=== PATIENT | female | born 1945 | race African-American/Black ===

== ENCOUNTER 2019-04-10 11:44 | Observation (INO) | payer BC, MEDICARE ==
[~2019-04-10] VITALS: Ht 170.2 cm; Wt 86.2 kg
--- OUTSIDE RECORDS SUMMARY | 2019-04-10 11:49 | XMS REPORT ---
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 Allergies, Adverse Reactions, Alerts Allergy Name Allergy Type Status Severity Reaction(s) Onset Date Inactive Date Treating Clinician Comments No Known Allergies DA Active U 2019-02-13 00:00:00 No Known Allergies DA Active U 2015-11-18 00:00:00 Medications This patient has no known medications. Results Test Description Test Time Test Comments Text Results Atomic Results Result Comments [facility] 2019-02-23 16:22:00 RUN DATE: 02/23/19 [place] - Lab PAGE 1 RUN TIME: 1622 Specimen Inquiry RUN USER: INTERFACE PATIENT: DIANA PETER LOC: DEMETRIUS U #: [id number] AGE/SX: 73/F ROOM: RE02/19/19REG DR: Alex Cook MD : 44 BED: DIS: STATUS: [facility] TLOC: SPEC #: [id number] RECD: 02/19/19 STATUS: POOL [facility] #: [id number] LAURY: 02/19/19- SUBM DR: Alex Cook MD ENTERED: 02/19/19 SP TYPE: STOMACH OTHR DR: ORDERED: GROSS MARKERS: INTRADEPARTMENTAL CONSULT PROCEDURES: GROSS (02/23/19-103) TISSUES: 1. ANTRAL BIOPSY - H-PYLORI 2. BODY BIOPSY OF STOMACH - BX 3. SIGMOID - BX 4. RECTUM, NOS - BX CLINICAL HISTORY COLLECTION DATE: 02/19/19 BLOATING COMMENT The inflammation in the third specimen is quite prominant with plasma cells extending into the muscularis mucosa. Only a few glands are present in the mucosa limiting the evaluation for glandular changes. The differential includes infectious etiologies and inflammatory bowel d isease. Clinical correlation is recommended. Intradepartmental consultation: RRB. FINAL DIAGNOSIS Antrum, biopsy: REACTIVE GASTROPATHY WITH PATCHY MILD CHRONIC INFLAMMATION NO INTESTINAL METAPLASIA SEEN NEGATIVE FOR HELICOBACTER PYLORI BY GIEMSA STAIN NEGATIVE FOR MALIGNANCY Body of stomach, biopsy: GASTRIC MUCOSA, NO PATHOLOGIC ALTERATION Sigmoid colon, biopsy: PROMINANT ACUTE AND CHRONIC INFLAMMATION WITH NUMEROUS PLASMA CELLS NEGATIVE FOR MALIGNANCY (SEE COMMENT) Rectum, biopsy: CONTINUED ON NEXT PAGE RUN DATE: 02/23/19 [facility] PAGE 2 RUN TIME: 1622 Specimen Inquiry RUN USER: INTERFACE SPEC #: [id number] PATIENT: DIANA PETERN #[id number] (Continued) FINAL DIAGNOSIS (Continued) COLONIC MUCOSA, NO PATHOLOGIC ALTERATION DMW/alexis D [id number], [id number] MACROSCOPIC The first specimen is received in formalin, labeled with the patient's name, identified as "antrum", and consists of two eisenberg biopsy fragments measuring 0.6 and 0.4 cm in length. The second specimen is received in formalin, labeled with the patient's name, identified as "body biopsy", and consists of two eisenberg biopsy fragments measuring 0.3 cm each. The third specimen is received in formalin, labeled with the patient's name, identified as "sigmoid colon biopsy", and consists of a eisenberg biopsy fragment measuring 0.3 cm. The fourth specimen is received in formalin, labeled with the patient's name, identified as "rectum colon", and consists of a eisenberg biopsy fragment measuring 0.3 cm. GROSS PERFORMED AT [facility] [address] [place] [address] (p)[phone] MICROSCOPIC All of the stains, including any controls performed, stain appropriately. MICROSCOPIC PERFORMED AT [facility] [address] [facility], [place] [address] [phone])[phone] PERFORMING SITE Diagnosis performed at: [facility] [address] [place] [address] CONTINUED ON NEXT PAGE RUN DATE: 02/23/19 [place] - Lab PAGE 3 RUN TIME: 1622 Specimen Inquiry RUN USER: INTERFACE SPEC #: [id number] PATIENT: DIANA PETER NEFTALY #[id number] (Continued) PERFORMING SITE (Continued) [phone] Signed SIGNATURE ON FILE Bonita Munoz MD 02/23/19 1622 END OF REPORT GLUBED 2019-02-19 07:36:00 GLUBED (test code=GLUBED) 195 mg/dL 74-106 Performed by certified alemite operator at [facility] PROTHROMBIN [id number] 07:29:00* Test Item Value Reference Range Comments PROTHROMBIN TIME PATIENT (test code=PTP) 11.5 seconds 9.0-14.0 INTERNATIONAL NORMAL RATIO (test code=INR) 1.0 0.8-1.2 The therapeutic range for oral anticoagulant therapy formost indications is an international normalized ratio (INR)of between 2.0 and 3.0. The recommended therapeutic INRrange for various clinical situations is listed below: Clinical Situation INR range Pulmonary e mbolism treatment (2.0-3.0)Venous thrombosis treatmentVenous thrombosis prophylaxis (high risk surgery)Prevention of systemic embolism from: Acute myocardial infarction Valvular heart disease Atrial fibrillation Mechanical prosthetic heart valves (2.5-3.5) IS PATIENT ON ANTICOAGULANTS? YLIST ANTICOAGULANTS XARELTOCOMMENTS TO PHLEBO TOMIST: IN DSUTHROMBOPLASTIN TIME [id number] 07:29:00* Test Item Value Reference Range Comments THROMBOPLASTIN TIME PARTIAL (test code=PTT) 34.5 seconds 25.0-36.5 IS PATIENT ON ANTICOAGULANTS? YLIST ANTICOAGULANTS XARELTOCOMMENTS TO PHLEBO TOMIST: IN DSUBASIC METABOLIC [id number] 07:27:00* Test Item Value Reference Range Comments SODIUM (test code=NA) 143 mmol/L 136-145 POTASSIUM (test code=K) 3.1 mmol/L 3.5-5.1 CHLORIDE (test code=CL) 105.0 mmol/L 98-107 CARBON DIOXIDE (test code=CO2) 26.0 mmol/L 21-32 ANION GAP (test code=GAP) 15.1 10-20 GLUCOSE (test code=GLU) 187 mg/dL 74-106 BLOOD UREA NITROGEN (test code=BUN) 18 mg/dL 7-18 GLOMERULAR FILTRATION RATE (test code=GFR) 30 mL/min >=60 Estimated GFR by using Modified MDRD formula.Chronic kidney disease is defined as either kidney damageor GFR <60 mL/min/1.73 m2 for >3 months. CREATININE (test code=CREAT) 2.00 mg/dL 0.55-1.02 Note change in reference range due to change in reagent. BUN/CREATININE RATIO (test code=BUN/CREA) 9.0 10-20 CALCIUM (test code=CA) 9.9 mg/dL 8.5-10.1 BASIC METABOLIC [id number] 07:24:00* Test Item Value Reference Range Comments SODIUM (test code=NA) 143 mmol/L 136-145 POTASSIUM (test code=K) 3.1 mmol/L 3.5-5.1 CHLORIDE (test code=CL) 105.0 mmol/L 98-107 CARBON DIOXIDE (test code=CO2) mmol/L 21-32 ANION GAP (test code=GAP) 10-20 GLUCOSE (test code=GLU) mg/dL 74-106 BLOOD UREA NITROGEN (test code=BUN) mg/dL 7-18 GLOMERULAR FILTRATION RATE (test code=GFR) mL/min >=60 CREATININE (test code=CREAT) mg/dL 0.55-1.02 BUN/CREATININE RATIO (test code=BUN/CREA) 10-20 CALCIUM (test code=CA) mg/dL 8.5-10.1 CBC W/AUTO [id number] 07:14:00* Test Item Value Reference Range Comments WHITE BLOOD CELL (test code=WBC) 7.3 K/mm3 4.5-12.5 RED BLOOD CELL (test code=RBC) 5.43 mill/mm3 3.7-5.2 HEMOGLOBIN (test code=HGB) 14.2 gram/dL 11.5-15.5 HEMATOCRIT (test code=HCT) 43.9 % 36.0-46.0 MEAN CELL VOLUME (test code=MCV) 80.8 fL 80-98 MEAN CELL HGB (test code=MCH) 26.2 picogram 27.0-33.0 MEAN CELL HGB CONCETRATION (test code=MCHC) 32.3 gram/dL 33.0-36.0 RED CELL DISTRIBUTION WIDTH (test code=RDW) 15.7 % 11.6-16.2 RED CELL DISTRIBUTION WIDTH SD (test code=RDW-SD) 45.2 fL 37.0-51.0 PLATELET COUNT (test code=PLT) 201 K/mm3 150-450 MEAN PLATELET VOLUME (test code=MPV) 11.3 fL 6.7-11.0 NEUTROPHIL % (test code=NT%) 54.6 % 39.0-69.0 IMMATURE GRANULOCYTE % (test code=IG%) 0.3 % 0.0-5.0 LYMPHOCYTE % (test code=LY%) 34.7 % 25.0-55.0 MONOCYTE % (test code=MO%) 8.6 % 0.0-10.0 EOSINOPHIL % (test code=EO%) 1.5 % 0.0-5.0 BASOPHIL % (test code=BA%) 0.3 % 0.0-1.0 NUCLEATED RBC % (test code=NRBC%) 0.0 % 0-0 NEUTROPHIL # (test code=NT#) 4.00 K/mm3 1.8-7.7 IMMATURE GRANULOCYTE # (test code=IG#) 0.02 x10 3/uL 0-0.03 LYMPHOCYTE # (test code=LY#) 2.54 K/mm3 1.0-5.0 MONOCYTE # (test code=MO#) 0.63 K/mm3 0-0.8 EOSINOPHIL # (test code=EO#) 0.11 K/mm3 0.0-0.5 BASOPHIL # (test code=BA#) 0.02 K/mm3 0.0-0.2 NUCLEATED RBC # (test code=NRBC#) 0.00 K/mm3 0.0-0.1 MANUAL DIFF REQUIRED (test code=MDIFF) NO CBC W/AUTO [id number] 07:12:00* Test Item Value Reference Range Comments WHITE BLOOD CELL (test code=WBC) K/mm3 4.5-12.5 RED BLOOD CELL (test code=RBC) mill/mm3 3.7-5.2 HEMOGLOBIN (test code=HGB) 14.2 gram/dL 11.5-15.5 HEMATOCRIT (test code=HCT) 43.9 % 36.0-46.0 MEAN CELL VOLUME (test code=MCV) fL 80-98 MEAN CELL HGB (test code=MCH) picogram 27.0-33.0 MEAN CELL HGB CONCETRATION (test code=MCHC) gram/dL 33.0-36.0 RED CELL DISTRIBUTION WIDTH (test code=RDW) % 11.6-16.2 RED CELL DISTRIBUTION WIDTH SD (test code=RDW-SD) fL 37.0-51.0 PLATELET COUNT (test code=PLT) K/mm3 150-450 MEAN PLATELET VOLUME (test code=MPV) fL 6.7-11.0 NEUTROPHIL % (test code=NT%) % 39.0-69.0 IMMATURE GRANULOCYTE % (test code=IG%) % 0.0-5.0 LYMPHOCYTE % (test code=LY%) % 25.0-55.0 MONOCYTE % (test code=MO%) % 0.0-10.0 EOSINOPHIL % (test code=EO%) % 0.0-5.0 BASOPHIL % (test code=BA%) % 0.0-1.0 NEUTROPHIL # (test code=NT#) K/mm3 1.8-7.7 LYMPHOCYTE # (test code=LY#) K/mm3 1.0-5.0 MONOCYTE # (test code=MO#) K/mm3 0-0.8 EOSINOPHIL # (test code=EO#) K/mm3 0.0-0.5 BASOPHIL # (test code=BA#) K/mm3 0.0-0.2 PROTHROMBIN [id number] 13:17:00* Test Item Value Reference Range Comments PROTHROMBIN TIME PATIENT (test code=PTP) 15.5 seconds 9.0-14.0 INTERNATIONAL NORMAL RATIO (test code=INR) 1.3 0.8-1.2 The therapeutic range for oral anticoagulant therapy formost indications is an international normalized ratio (INR)of between 2.0 and 3.0. The recommended therapeutic INRrange for various clinical situations is listed below: Clinical Situation INR range Pulmonary e mbolism treatment (2.0-3.0)Venous thrombosis treatmentVenous thrombosis prophylaxis (high risk surgery)Prevention of systemic embolism from: Acute myocardial infarction Valvular heart disease Atrial fibrillation Mechanical prosthetic heart valves (2.5-3.5) IS PATIENT ON ANTICOAGULANTS? NBASIC METABOLIC [id number] 13:06:00* Test Item Value Reference Range Comments SODIUM (test code=NA) 151 mmol/L 136-145 POTASSIUM (test code=K) 3.7 mmol/L 3.5-5.1 CHLORIDE (test code=CL) 116.0 mmol/L 98-107 CARBON DIOXIDE (test code=CO2) 25.0 mmol/L 21-32 ANION GAP (test code=GAP) 13.7 10-20 GLUCOSE (test code=GLU) 196 mg/dL 74-106 BLOOD UREA NITROGEN (test code=BUN) 17 mg/dL 7-18 GLOMERULAR FILTRATION RATE (test code=GFR) 45 mL/min >=60 Estimated GFR by using Modified MDRD formula.Chronic kidney disease is defined as either kidney damageor GFR <60 mL/min/1.73 m2 for >3 months. CREATININE (test code=CREAT) 1.40 mg/dL 0.55-1.02 Note change in reference range due to change in reagent. BUN/CREATININE RATIO (test code=BUN/CREA) 12.1 10-20 CALCIUM (test code=CA) 9.1 mg/dL 8.5-10.1 HEPATIC FUNCTION [id number] 13:06:00* Test Item Value Reference Range Comments TOTAL PROTEIN (test code=PROT) 7.5 gram/dL 6.4-8.2 ALBUMIN (test code=ALB) 3.5 g/dL 3.4-5.0 GLOBULIN (test code=GLOB) 4.0 gram/dL 2.7-4.2 ALBUMIN/GLOBULIN RATIO (test code=A/G) 0.9 0.75-1.50 BILIRUBIN TOTAL (test code=BILT) 0.50 mg/dL 0.0-1.0 BILIRUBIN DIRECT (test code=BILD) 0.12 mg/dL 0.0-0.20 SGOT/AST (test code=AST) 10 IUnit/L 15-37 SGPT/ALT (test code=ALT) 19 IUnit/L 12-78 ALKALINE PHOSPHATASE TOTAL (test code=ALKP) 55 IUnit/L 45-117 Note change in reference range due to change in reagent. [id number] 13:06:00* Test Item Value Reference Range Comments LIPASE (test code=LIP) 38 U/L 73.0-393.0 CBC W/O [id number] 13:03:00* Test Item Value Reference Range Comments WHITE BLOOD CELL (test code=WBC) 6.6 K/mm3 4.5-12.5 RED BLOOD CELL (test code=RBC) 4.95 mill/mm3 3.7-5.2 HEMOGLOBIN (test code=HGB) 12.8 gram/dL 11.5-15.5 HEMATOCRIT (test code=HCT) 41.4 % 36.0-46.0 MEAN CELL VOLUME (test code=MCV) 83.6 fL 80-98 MEAN CELL HGB (test code=MCH) 25.9 picogram 27.0-33.0 MEAN CELL HGB CONCETRATION (test code=MCHC) 30.9 gram/dL 33.0-36.0 RED CELL DISTRIBUTION WIDTH (test code=RDW) 15.8 % 11.6-16.2 PLATELET COUNT (test code=PLT) 176 K/mm3 150-450 MEAN PLATELET VOLUME (test code=MPV) 11.8 fL 6.7-11.0 CBC W/O [id number] 13:00:00* Test Item Value Reference Range Comments WHITE BLOOD CELL (test code=WBC) K/mm3 4.5-12.5 RED BLOOD CELL (test code=RBC) mill/mm3 3.7-5.2 HEMOGLOBIN (test code=HGB) 12.8 gram/dL 11.5-15.5 HEMATOCRIT (test code=HCT) 41.4 % 36.0-46.0 MEAN CELL VOLUME (test code=MCV) fL 80-98 MEAN CELL HGB (test code=MCH) picogram 27.0-33.0 MEAN CELL HGB CONCETRATION (test code=MCHC) gram/dL 33.0-36.0 RED CELL DISTRIBUTION WIDTH (test code=RDW) % 11.6-16.2 PLATELET COUNT (test code=PLT) K/mm3 150-450 MEAN PLATELET VOLUME (test code=MPV) fL 6.7-11.0 GASTRIC,[id number] 12:46:00 RUN DATE: 10/17/17 [place] [facility] PAGE 1 RUN TIME: 1247 Specimen Inqui ry RUN USER: INTERFACE PATIENT: DIANA PETER NEFTALY ACCT #: [id number] LOC: DEMETRIUS U #: [id number] AGE/SX: 72/F ROOM: RE10/13/17REG DR: lAex Cook MD : 44 BED: DIS: STATUS: DEP SD TLOC: SPEC #: [id number] RECD: 10/14/17 STATUS: POOL TAPIA #: [id number] LAURY: 10/13/17- SUBM DR: Alex Cook MD ENTERED: 10/14/17 SP TYPE: GASTRIC BX TOBI DR: ORDERED: GROSS PROCEDURES: GROSS (10/17/17) TISSUES: 1. GASTRIC FUNDUS - POLYP 2. ANTRUM - BX 3. ASCENDING COLON - POLYP CLINICAL HISTORY COLLECTION DATE: 10/13/17 RECTAL BLEEDING, ABDOMINAL PAIN POST-OP DIAGNOSIS: SEVERE GASTRITIS, GASTRIC POLYPS, COLON POLYP FINAL DIAGNOSIS Gastric polyp, cold biopsy: FUNDIC GLAND POLYP CONTROLLED GIEMSA STAIN NEGATIVE FOR HELICOBACTER ORGANISMS NEGATIVE FOR MALIGNANCY Stomach, antrum, biopsy: FOCAL PATCHY CHRONIC GASTRITIS CONTROLLED GIEMSA STAIN NEGATIVE FOR HELICOBACTER OR GANISMS NEGATIVE FOR INTESTINAL METAPLASIA AND DYSPLASIA NEGATIVE FOR MALIGNANCY Ascending colon polyp, cold snare/biopsy: TUBULAR AD ENOMA X 2 NEGATIVE FOR MALIGNANCY KELL/sm [phone], [phone] MACROSCOPIC The first specimen is received in formalin, labeled with the patient's name, identified as "gastric polyp bx", and consists of eisenberg biop sy tissue measuring 0.35 cm, submitted as (1) for H E and Giemsa stains. The second specimen is received in formalin, labeled with the patient's name, CONTINUED ON NEXT PAGE RUN DATE: 10/17/17 [facility] PAGE 2 RUN TIME: 1247 Specimen Inquiry RUN USER: INTERFACE - SPEC #: [id number] PATIENT: DIANA PETER #[id number] (Continued) MACROSCOPIC (Continued ) identified as "antrum bx", and consists of eisenberg biopsy tissue measuring 0.7 cm in aggregate, submitted as (2) for H E and Giemsa stains. The third s pecimen is received in formalin, labeled with the patient's name, identified a s "ascending colon polyp", and consists of two eisenberg biopsy tissue measuring 0.1 5 and 0.3 cm each, submitted as (3). GROSS PERFORMED AT [facility] [address] [place] [id number] (P) MICROSCOPIC MICROSCOPIC PERFORMED AT [facility] All of the stains, including any controls performed, stain appropriately. [facility] [address] [place] [phone] (K) PERFORMING SITE Diagnosis performed at: [facility], [place] [address] [place] [address] Signed SIGNATURE ON FILE Aurora Alarcon 10/17/17 1246 END OF REPORT
[2019-04-10 12:57] LABS: CLARITY,URINE CLOUDY (CLEAR); COLOR,URINE ORANGE (YELLOW); LEUKOCYTE ESTERASE ,URINE SMALL (NEGATIVE); NITRITE,URINE NEGATIVE (NEGATIVE)
[2019-04-10 12:58] LABS: KETONES,URINE TRACE (NEGATIVE); PROTEIN,URINE DIPSTICK 1+ (NEGATIVE); URINE UROBILINOGEN 0.2 mg/dL (0.2 - 1)
[2019-04-10 12:59] LABS: BILIRUBIN,URINE NEGATIVE (NEGATIVE)
[2019-04-10 13:07] LABS: RBC,URINE 0-5 /HPF (0-5); WBC,URINE (MAN) 21-50 /HPF (0-5)
[2019-04-10 13:08] LABS: BACTERIA,URINE MODERATE /HPF; EPITHELIAL CELLS,URINE MANY /LPF
[2019-04-10 13:16] LABS: BASOPHILS % 0.3 % (0.0-1.0); EOSINOPHILS % 0.5 % (0.0-6.0); HEMATOCRIT 40.9 % (34.2-44.1); HEMOGLOBIN 12.9 g/dL (12.0-16.0); LYMPHOCYTES # (AUTO) 2.2 (1.0-3.2); LYMPHOCYTES % 29.3 % (18.0-39.1); MEAN CORPUSCULAR HEMOGLOBIN 26.2 pg (28-32); MEAN CORPUSCULAR HGB CONC 31.5 g/dL (31-35); MEAN CORPUSCULAR VOLUME 83.1 fL (81-99); MONOCYTES # (AUTO) 0.5 (0.2-0.8); MONOCYTES % 6.9 % (4.4-11.3); NEUTROPHILS # (AUTO) 4.6 (2.1-6.9); NEUTROPHILS % 62.7 % (38.7-80.0); PLATELET COUNT 173 x10e3/uL (140-360); RED BLOOD COUNT 4.92 x10e6/uL (3.6-5.1)
--- NOTE | 2019-04-10 13:38 | Diagnostic Imaging Report ---
TECHNIQUE: Frontal and lateral views of the chest. INDICATION: 73-year-old woman with weakness. COMPARISON: None. FINDINGS: LINES/TUBES: None. LUNGS: The lungs are well inflated. No consolidation or pulmonary edema. Linear atelectasis in the left midlung zone. PLEURA: No pleural effusion or pneumothorax. HEART AND MEDIASTINUM: The cardiomediastinal silhouette is within normal limits. Atherosclerotic calcifications in the thoracic aorta. SOFT TISSUES AND BONES: Degenerative changes of the thoracic spine. Soft tissues are unremarkable. IMPRESSION: No acute cardiopulmonary abnormalities. Signed by: Laure Dahl MD on 04/10/2019 1:35 PM
[2019-04-10 13:40] LABS: ALBUMIN 3.7 g/dL (3.5-5.0); ANION GAP 13.8 mmol/L (8-16); CREATININE, SERUM 1.71 mg/dL (0.57-1.11)
--- NOTE | 2019-04-10 14:05 | Diagnostic Imaging Report ---
Examination: CT head without contrast Clinical Indication: Weakness. Unsteady gait. Technique: Transaxial noncontrast images from the skull base through the vertex were obtained. Sagittal and coronal reformatted images were done. Dose modulation, iterative reconstruction, and/or weight based adjustment of the mA/kV was utilized to reduce the radiation dose to as low as reasonably achievable. Comparison: None. Findings: Scalp: No abnormalities. Bones: Intact. No fractures. No blastic or lytic lesions. Brain sulci: Moderate generalized volume loss for patient's age. Ventricles: No hydrocephalus. Extra-axial space: No abnormalities. Parenchyma: There are confluent and patchy areas of low-attenuation within subcortical and periventricular white matter, nonspecific, but could represent microvascular ischemic disease. No masses, hemorrhage, or acute or chronic cortical based vascular insults. Suprasellar region: No abnormalities. Craniocervical junction: The foramen magnum is patent. No Chiari one malformation. Incidental findings: Opacified left sphenoid sinus. Atherosclerotic calcification of the cavernous and supraclinoid internal carotid and V4 segments of the bilateral vertebral arteries. Impression: 1. No acute intracranial finding. 2. Moderate chronic microvascular ischemic change and generalized volume loss. Signed by: Dr. Berna Camarena M.D. on 04/10/2019 2:02 PM
[2019-04-10 14:11] LABS: POTASSIUM 2.8 mmol/L (3.5-5.1)
[2019-04-10 15:01] LABS: AMPHETAMINES SCREEN,URINE NEGATIVE (NEGATIVE); BENZODIAZEPINES SCREEN,URINE POSITIVE (NEGATIVE); PHENCYCLIDINE SCREEN,URINE NEGATIVE (NEGATIVE)
[2019-04-10] MEDS ORDERED: POTASSIUM CHLORIDE 20 MEQ TAB CR PO STA (15:06)
[2019-04-10] MEDS: SODIUM CHLORIDE 0.9% 1000ML 1,000 ML IV SCH ×2 (16:00→22:34)
[2019-04-10] MEDS: CEFTRIAXONE SOD 1 GM/NS 50 ML 50 ML IV SCH (16:00)
[2019-04-10 16:09] LABS: CREATINE KINASE MB 0.9 ng/mL (0-5.0)
--- NOTE | 2019-04-10 21:03 | NUR ---
report called from [employer] SUPERVISORJACKLYN Donahue, patient pending arrival to the floor, observation status, full code, bedrest with BRP's, pending to room 186
--- NOTE | 2019-04-10 21:32 | NUR ---
PATIENT ARRIVED TO THE FLOOR ASSISTED BY RN, AND FAMILY, AWAKE ALERT, ORIENTED x 4, ABLE TO MAKE NEEDS KNOWN, ABLE TO AMBULATE WITH HANDS-ON ASSISTANCE FEW FEET, BEDSIDE COMMODE FOR SAFETY, BED ALARM, ORIENTED TO STAFF AND ROOM
[2019-04-10 21:36] VITALS: BP 196/89
[2019-04-10 21:40] VITALS: BP 196/89
[2019-04-10 22:00] VITALS: BP 196/89
[2019-04-10] MEDS ORDERED: FUROSEMIDE40 MG PO (22:24)
[2019-04-10] MEDS ORDERED: NEXIUM40 MG PO (22:24)
[2019-04-10] MEDS ORDERED: CHLORDIAZEPOX-1 EACH PO (22:24)
[2019-04-10] MEDS ORDERED: VERAPAMIL SR240 MG PO (22:24)
[2019-04-10] MEDS ORDERED: LEVOCETIRIZINE D5 MG PO (22:24)
[2019-04-10] MEDS ORDERED: BENICAR20 MG PO (22:24)
[2019-04-10] MEDS ORDERED: XARELTO20 MG PO (22:24)
[2019-04-10] MEDS ORDERED: SUCRALFATE1 GM PO (22:24)
[2019-04-10] MEDS ORDERED: DICYCLOMINE HCL10 MG PO (22:24)
[2019-04-10] MEDS ORDERED: MONTELUKAST SOD10 MG PO (22:24)
[2019-04-10] MEDS ORDERED: SIMVASTATIN PO (22:24)
[2019-04-10] MEDS ORDERED: KLOR-CON 1010 MEQ PO (22:24)
[2019-04-10] MEDS ORDERED: MESALAMINE1.2 GM (22:24)
[2019-04-10] MEDS ORDERED: GLIPIZIDE5 MG PO (22:24)
[2019-04-10] MEDS ORDERED: CARVEDILOL12.5 MG PO (22:24)
[2019-04-10] MEDS ORDERED: BROMPHENIR-PSE118 ML PO (22:24)
[2019-04-11] VITALS (8 sets, daily range): BP systolic 163–179; BP diastolic 87–102
[2019-04-11] MEDS: CEFTRIAXONE SOD 1 GM/NS 50 ML 50 ML IV SCH ×2 (03:27→16:54)
[2019-04-11 05:35] LABS: BASOPHILS % 0.4 % (0.0-1.0); EOSINOPHILS # (AUTO) 0.1 (0.0-0.4); EOSINOPHILS % 1.4 % (0.0-6.0); HEMATOCRIT 35.8 % (34.2-44.1); LYMPHOCYTES # (AUTO) 2.5 (1.0-3.2); LYMPHOCYTES % 44.5 % (18.0-39.1); MEAN CORPUSCULAR HEMOGLOBIN 26.1 pg (28-32); MEAN CORPUSCULAR HGB CONC 30.7 g/dL (31-35); MONOCYTES # (AUTO) 0.4 (0.2-0.8); MONOCYTES % 7.6 % (4.4-11.3); NEUTROPHILS # (AUTO) 2.6 (2.1-6.9); NEUTROPHILS % 45.9 % (38.7-80.0); PLATELET COUNT 149 x10e3/uL (140-360); RED BLOOD COUNT 4.21 x10e6/uL (3.6-5.1); RED CELL DISTRIBUTION WIDTH 14.1 % (11.7-14.4)
[2019-04-11 06:02] LABS: ALBUMIN 3.1 g/dL (3.5-5.0); ANION GAP 9.8 mmol/L (8-16); CALCIUM 8.8 mg/dL (8.4-10.2); CREATININE, SERUM 1.22 mg/dL (0.57-1.11); MAGNESIUM 1.9 MG/DL (1.3-2.1)
[2019-04-11 06:07] LABS: POTASSIUM 2.8 mmol/L (3.5-5.1)
--- NOTE | 2019-04-11 06:32 | NUR ---
LAB REPORTED CRITICAL LAB K+2.8, NO CHANGE IN POTASSIUM LEVEL FROM INITIAL, MD Reina VYAS PAGED, PENDING CALL BACK FOR ORDERS
--- NOTE | 2019-04-11 06:55 | NUR ---
SBAR REPORT GIVEN TO JACKLYN BONE MADE AWARE OF CRITICAL K+ LEVEL AND PENDING CALL BACK FROM MD VYAS, WILL FU FOR ORDERS
[2019-04-11] MEDS ORDERED: DEXTROSE 50% SYRINGE 50 ML IV PRN ×2 (08:00→10:00)
[2019-04-11] MEDS: SODIUM CHLORIDE 0.9% 1000ML 1,000 ML IV SCH ×2 (08:10→16:55)
[2019-04-11] MEDS ORDERED: POTASSIUM CHLORIDE 10MEQ EA PO ONE ×2 (08:15→11:15)
[2019-04-11] MEDS ORDERED: POTASSIUM CHLORIDE 20MEQ/100ML 100 ML IV ONE (10:45)
[2019-04-11] MEDS ORDERED: INSULIN REGULAR, HUMAN 100 UNIT/1 ML 3ML VIAL SQ SCH ×2 (11:30)
[2019-04-11] MEDS: INSULIN REGULAR, HUMAN 100 UNIT/1 ML 3ML VIAL SQ SCH ×3 (12:46→22:17)
--- NOTE | 2019-04-11 15:09 | NUR ---
Nutrition Screen Note RD Recommendation for Physician: - Continue current diet - BG and insulin management per MD Plan of Care: RD following, monitoring for tolerance and adequacy Nutrition reason for involvement: Nutrition Risk Trigger- MST2 Primary Diagnose(s): UTI, renal insufficiency, weakness, hypokalemia PMH: no H&P available in chart or [employer] Ht: 67 in Wt: 182.03 lb BMI: 28.5 kg/m2 IBW: [address] Assessment: (04/11) 73 YOF admitted for UTI, renal insufficiency, weakness, and hypokalemia. Pt seen today for MST screen. Pt sleeping at time of visit, unable to wake and no family present to provide hx. Pt appears well nourished. Per flow sheet per eating 75-100% of meals. No GI distress reported by RN. Skin intact. Chart reviewed. Labs and meds reviewed. Will continue to monitor. Current Diet: 1800 ADA Malnutrition Evaluation (04/11/19) The patient does not meet criteria for a specified degree of malnutrition at this time. Will re-evaluate at follow-up as appropriate. Unable to assess. Diet Education Needs Assessment: Diet education indicated, pt not appropriate at this time- sleeping, unable to wake. Diet tolerance: tolerating po Nutrition Care Level: low Signed: Kim King RD, LD, [facility]
--- NOTE | 2019-04-11 17:56 | NUR ---
new iv started in right forearm in one try due to positional occlusions. patient tolerated well.
--- NOTE | 2019-04-11 23:42 | NUR ---
EQUITIES ANALYST REPORT PATIENT ROUTINE VITALS, SBP NOTED >210, MD Reina VYAS PAGED FOR ORDERS IMMEDIATELY, BLOOD PRESSURE, AWAITING CALL BACK
[2019-04-12] VITALS (11 sets, daily range): BP systolic 138–235; BP diastolic 72–115
[2019-04-12] MEDS ORDERED: HYDRALAZINE HCL 20 MG/ML VIAL IV STA (00:15)
--- NOTE | 2019-04-12 00:15 | NUR ---
MD VYAS RETURN PAGE x 3, ORDERED TO GIVE HYDRALAZINE 10MG IV NOW STAT, THEN RESTART PATIENT HOME MEDICATIONS FOR SAFETY
--- NOTE | 2019-04-12 01:06 | NUR ---
PATIENT CURRENTLY BLOOD PRESSUR 235/112, HOME MEDICATIONS GIVEN AND HYDRALAZINE 10MG IV PUSH STAT GIVEN, CONTINOUS MONITORING OF BLOOD PRESSURE IN EFFECT, CURRENTLY TRENDING DOWN, PT C/O MILD AL, BUT NO MAJOR SYMPTOMS NOTED
[2019-04-12] MEDS: SODIUM CHLORIDE 0.9% 1000ML 1,000 ML IV SCH ×4 (03:08→23:12)
[2019-04-12] MEDS: CEFTRIAXONE SOD 1 GM/NS 50 ML 50 ML IV SCH ×2 (03:09→15:54)
[2019-04-12 05:48] LABS: BASOPHILS % 0.3 % (0.0-1.0); EOSINOPHILS # (AUTO) 0.1 (0.0-0.4); EOSINOPHILS % 1.4 % (0.0-6.0); HEMOGLOBIN 11.8 g/dL (12.0-16.0); LYMPHOCYTES % 30.5 % (18.0-39.1); MEAN CORPUSCULAR HEMOGLOBIN 25.7 pg (28-32); MEAN CORPUSCULAR HGB CONC 30.3 g/dL (31-35); MEAN CORPUSCULAR VOLUME 84.8 fL (81-99); MONOCYTES # (AUTO) 0.4 (0.2-0.8); MONOCYTES % 5.5 % (4.4-11.3); NEUTROPHILS # (AUTO) 4.1 (2.1-6.9); NEUTROPHILS % 62.1 % (38.7-80.0); PLATELET COUNT 164 x10e3/uL (140-360); RED CELL DISTRIBUTION WIDTH 14.4 % (11.7-14.4)
[2019-04-12 06:09] LABS: ANION GAP 11.2 mmol/L (8-16); BLOOD UREA NITROGEN 12 mg/dL (7-26); BUN/CREATININE RATIO 12 (6-25); CALCIUM 8.6 mg/dL (8.4-10.2); CARBON DIOXIDE 23 mmol/L (22-29); CHLORIDE 112 mmol/L (98-107); CREATININE, SERUM 0.97 mg/dL (0.57-1.11); EST GLOMERULAR FILTRATION RATE > 60 ML/MIN (60-); GLUCOSE 122 mg/dL (74-118); POTASSIUM 3.2 mmol/L (3.5-5.1); SODIUM 143 mmol/L (136-145)
--- NOTE | 2019-04-12 07:06 | NUR ---
BSSR GIVEN VERBALLY TO JACKLYN BONE PATIENT SEEN LYING COMFORTABLY IN BED, NO DISTRESS NOTED, SKIN WARM DRY , UPDATED WITH PATIENT BLOOD PRESSURE BEING HIGH OVERNIGHT, INFORMED OF THE MEDICATION THAT WERE GIVEN, WITH GOOD RESULTS, VSS, HOME MEDICATIONS RESUMED, CALL LIGHT WITHIN REACH
[2019-04-12] MEDS: GLIPIZIDE 5 MG TAB PO SCH ×3 (07:30→15:54)
[2019-04-12] MEDS: INSULIN REGULAR, HUMAN 100 UNIT/1 ML 3ML VIAL SQ SCH ×4 (07:30→20:30)
[2019-04-12] MEDS: MESALAMINE 1.2 GM PO SCH ×4 (08:33→23:08)
[2019-04-12] MEDS: VERAPAMIL HCL 120 MG TABSR PO SCH (08:34)
[2019-04-12] MEDS ORDERED: SUCRALFATE 1 GM TAB PO SCH (09:00)
[2019-04-12] MEDS ORDERED: FUROSEMIDE 20 MG TAB PO SCH (09:00)
[2019-04-12] MEDS ORDERED: POTASSIUM CHLORIDE 10MEQ EA PO SCH (09:00)
[2019-04-12] MEDS ORDERED: OLMESARTAN 20 MG TAB PO SCH (09:00)
[2019-04-12] MEDS ORDERED: DICYCLOMINE HCL 10 MG CAP PO SCH (09:00)
[2019-04-12] MEDS ORDERED: CARVEDILOL 12.5 MG TAB PO SCH (09:00)
[2019-04-12] MEDS ORDERED: SIMVASTATIN 20 MG TAB PO SCH ×2 (09:00→21:00)
[2019-04-12] MEDS ORDERED: ACETAMINOPHEN 325 MG TAB PO PRN (11:15)
[2019-04-12] MEDS ORDERED: POTASSIUM CHLORIDE 10MEQ EA PO ONE (13:15)
[2019-04-12] MEDS ORDERED: GLIPIZIDE 5 MG TAB PO SCH (15:00)
[2019-04-12] MEDS: DICYCLOMINE HCL 10 MG CAP PO SCH ×2 (15:53→23:08)
[2019-04-12] MEDS: SUCRALFATE 1 GM TAB PO SCH ×2 (15:53→23:08)
[2019-04-12] MEDS: RIVAROXABAN 15 MG TABLET PO SCH (16:51)
[2019-04-12] MEDS: CARVEDILOL 12.5 MG TAB PO SCH (16:51)
[2019-04-12] MEDS ORDERED: MONTELUKAST SODIUM 10 MG TAB PO SCH (21:00)
[2019-04-12] MEDS: SIMVASTATIN 40 MG TAB PO SCH (23:08)
[2019-04-13] VITALS: BP 180/102
--- NOTE | 2019-04-13 00:52 | NUR ---
MD eRina VYAS REGARDING HYPERTENSION PRN MEDICATION CURRENT SBP 180/102 Addendum: 04/13/19 at 0212 by MARTITA SIBLEY RN LOGAN VYAS REGARDING HYPERTENSION PRN MEDICATION CURRENT SBP 180/102, DIRECTLY CONNECTED, SCHEDULED HYDRALAZINE ADDED FOR HYPERTENSION, PT TOLERATED WELL
[2019-04-13] MEDS: HYDRALAZINE HCL 25 MG TAB PO SCH ×2 (01:30→11:23)
[2019-04-13 04:00] VITALS: BP 142/86
[2019-04-13] MEDS: CEFTRIAXONE SOD 1 GM/NS 50 ML 50 ML IV SCH ×2 (04:21→11:24)
[2019-04-13 05:47] VITALS: BP 142/86
[2019-04-13 05:48] VITALS: BP 142/86
[2019-04-13] MEDS: SODIUM CHLORIDE 0.9% 1000ML 1,000 ML IV SCH (07:20)
[2019-04-13] MEDS: INSULIN REGULAR, HUMAN 100 UNIT/1 ML 3ML VIAL SQ SCH (07:30)
[2019-04-13 08:19] VITALS: BP 166/87
[2019-04-13] MEDS ORDERED: FUROSEMIDE 40 MG TAB PO SCH (09:00)
[2019-04-13] MEDS: MESALAMINE 1.2 GM PO SCH (09:00)
[2019-04-13] MEDS ORDERED: RIVAROXABAN 15 MG TABLET PO SCH (09:00)
[2019-04-13] MEDS ORDERED: POTASSIUM CHLORIDE 10MEQ EA PO SCH (09:00)
[2019-04-13] MEDS ORDERED: OLMESARTAN 20 MG TAB PO SCH (09:00)
[2019-04-13] MEDS ORDERED: RIVAROXABAN 20 MG TABLET PO SCH (09:00)
[2019-04-13] MEDS ORDERED: PANTOPRAZOLE SOD 40 MG TABEC PO SCH (09:00)
[2019-04-13] MEDS ORDERED: FUROSEMIDE 20 MG TAB PO SCH (09:00)
[2019-04-13] MEDS ORDERED: MONTELUKAST SODIUM 10 MG TAB PO SCH (09:00)
[2019-04-13] MEDS: GLIPIZIDE 5 MG TAB PO SCH (11:21)
[2019-04-13] MEDS: DICYCLOMINE HCL 10 MG CAP PO SCH (11:23)
[2019-04-13] MEDS: SUCRALFATE 1 GM TAB PO SCH (11:24)
[2019-04-13] MEDS: RIVAROXABAN 15 MG TABLET PO SCH (11:24)
[2019-04-13] MEDS: CARVEDILOL 12.5 MG TAB PO SCH (11:24)
[2019-04-13] MEDS: VERAPAMIL HCL 120 MG TABSR PO SCH (11:24)
[2019-04-13] MEDS: SIMVASTATIN 40 MG TAB PO SCH (11:24)
[2019-04-13 11:51] VITALS: BP 169/98
[2019-04-13] MEDS ORDERED: CIPRO500 MG PO (12:41)
[2019-04-13] MEDS ORDERED: HYDRALAZINE HCL25 MG PO ×2 (12:41→12:45)
== END 2019-04-13 14:08 | disposition home or self-care (01) ==
LOC: ER 11:44 → ERHOLD 15:43 → IMCU 21:07
DX: N30.00 Acute cystitis without hematuria (principal); E87.6 Hypokalemia; N18.9 Chronic kidney disease, unspecified; K21.9 Gastro-esophageal reflux disease without esophagitis; I48.91 Unspecified atrial fibrillation; I25.10 Atherosclerotic heart disease of native coronary artery without angina pectoris; E11.22 Type 2 diabetes mellitus with diabetic chronic kidney disease; I12.9 Hypertensive chronic kidney disease with stage 1 through stage 4 chronic kidney disease, or unspecified chronic kidney disease; R53.1 Weakness; B96.20 Unspecified Escherichia coli [E. coli] as the cause of diseases classified elsewhere; Z79.84 Long term (current) use of oral hypoglycemic drugs
CPT/HCPCS: 36415 ×4; 70450; 71046; 80048; 80053 ×2; 80307; 80320; 81001; 82550; 82553; 82948 ×3; 83735; 83880; 84484; 85025 ×3; 87086; 87186; 93005; 96372; 99284; G0378 ×4; J0360; J0696 ×4; J1817; J3480; J7030 ×3; S0164

== ENCOUNTER 2019-05-16 15:33 | Emergency (ER) | payer BC, MEDICARE, OTHER ==
[~2019-05-16] VITALS: Ht 170.2 cm; Wt 85.3 kg
[~2019-05-16 15:33] MED LIST: BENICAR20 MG PO; BROMPHENIR-PSE118 ML PO; CARVEDILOL12.5 MG PO; CHLORDIAZEPOX-1 EACH PO; CIPRO500 MG PO; DICYCLOMINE HCL10 MG PO; FUROSEMIDE40 MG PO; GLIPIZIDE5 MG PO; HYDRALAZINE HCL25 MG PO; KLOR-CON 1010 MEQ PO; LEVOCETIRIZINE D5 MG PO; MESALAMINE1.2 GM; MONTELUKAST SOD10 MG PO; NEXIUM40 MG PO; SIMVASTATIN PO; SUCRALFATE1 GM PO; VERAPAMIL SR240 MG PO; XARELTO20 MG PO
[2019-05-16] MEDS ORDERED: FAMOTIDINE 20 MG/2 ML VIAL IV STA (15:38)
[2019-05-16] MEDS ORDERED: ONDANSETRON HCL INJ 2MG/ML 2ML 2 MG/ML VIAL IV STA (15:38)
[2019-05-16] MEDS ORDERED: SODIUM CHLORIDE 0.9% 1000ML 1,000 ML IV ONE (15:45)
[2019-05-16] MEDS ORDERED: DICYCLOMINE HCL 20 MG/2 ML VIAL IM ONE (15:45)
[2019-05-16 16:31] LABS: BASOPHILS % 0.3 % (0.0-1.0); EOSINOPHILS % 0.1 % (0.0-6.0); HEMATOCRIT 41.3 % (34.2-44.1); HEMOGLOBIN 13.2 g/dL (12.0-16.0); LYMPHOCYTES # (AUTO) 2.7 (1.0-3.2); LYMPHOCYTES % 40.1 % (18.0-39.1); MEAN CORPUSCULAR HEMOGLOBIN 26.3 pg (28-32); MEAN CORPUSCULAR VOLUME 82.4 fL (81-99); MONOCYTES # (AUTO) 0.5 (0.2-0.8); MONOCYTES % 6.9 % (4.4-11.3); NEUTROPHILS # (AUTO) 3.6 (2.1-6.9); NEUTROPHILS % 52.3 % (38.7-80.0); PLATELET COUNT 189 x10e3/uL (140-360); RED BLOOD COUNT 5.01 x10e6/uL (3.6-5.1); RED CELL DISTRIBUTION WIDTH 14.1 % (11.7-14.4)
[2019-05-16 16:44] LABS: ALBUMIN 3.9 g/dL (3.5-5.0); ALBUMIN/GLOBULIN RATIO 1.1 (0.8-2.0); ANION GAP 12.3 mmol/L (8-16); CALCIUM 9.8 mg/dL (8.4-10.2); CREATININE, SERUM 1.29 mg/dL (0.57-1.11); POTASSIUM 3.3 mmol/L (3.5-5.1)
[2019-05-16 17:29] LABS: BILIRUBIN,URINE NEGATIVE (NEGATIVE); CLARITY,URINE SL CLOUDY (CLEAR); COLOR,URINE YELLOW (YELLOW); KETONES,URINE NEGATIVE (NEGATIVE); LEUKOCYTE ESTERASE ,URINE NEGATIVE (NEGATIVE); NITRITE,URINE NEGATIVE (NEGATIVE); PROTEIN,URINE DIPSTICK NEGATIVE (NEGATIVE); URINE UROBILINOGEN 1 mg/dL (0.2 - 1)
[2019-05-16 17:44] LABS: BACTERIA,URINE FEW /HPF; EPITHELIAL CELLS,URINE MANY /LPF; WBC,URINE (MAN) 0-5 /HPF (0-5)
--- NOTE | 2019-05-16 18:03 | Diagnostic Imaging Report ---
Exam:Abdominal radiograph History:Colitis Comparison: None available Findings:Nonobstructive bowel gas pattern. Right upper Quadrant clips. No abnormal calcifications. Impression: Nonobstructive bowel gas pattern Signed by: Dr. Leoncio Rodriguez M.D. on 05/16/2019 6:00 PM
[2019-05-16 18:41] VITALS: BP 154/100
== END 2019-05-16 18:58 | disposition home or self-care (01) ==
LOC: ER 15:33
DX: R10.13 Epigastric pain (principal); R11.2 Nausea with vomiting, unspecified; K29.00 Acute gastritis without bleeding; I10 Essential (primary) hypertension; E78.5 Hyperlipidemia, unspecified; I51.9 Heart disease, unspecified; Z87.11 Personal history of peptic ulcer disease
CPT/HCPCS: 36415; 74019; 80053; 81001; 83690; 85025; 99284; J0500; J2405; J7030